=== PATIENT | female | born 1990 | race Caucasian/White ===

== ENCOUNTER 2022-08-03 12:54 | Outpatient (CLI) | payer SELFPAY ==
[2022-08-03 14:48] LABS: Hemoglobin 13.3 g/dL (12.0-15.5); Mean Corpuscular HGB CONC 34.1 g/dL (32.0-36.0); Mean Corpuscular Hemoglobin 32.5 pg (27.0-33.0); Mean Corpuscular Volume 95.4 fl (81.6-98.3); Mean Platelet Volume 11.1 fl (7.4-10.4); Platelet Count 249 10x3/uL (150-450); RBC Distribution Width 12.2 % (11.5-14.5); Red Blood Cell (RBC) Count 4.09 10x6/uL (3.90-5.03); White Blood Cell (WBC) Count 6.2 10x3/uL (3.5-10.5)
[2022-08-03 15:05] LABS: INR-International Normal Ratio 0.9; PTT 25.4 sec (22.0-33.0); Prothrombin Time 9.9 sec (9.5-12.1)
== END 2022-08-03 12:55 | disposition home or self-care (01) ==
LOC: LABBT 12:54
PROVIDERS: ATTEND Neurological Surgery
DX: Z01.812 Encounter for preprocedural laboratory examination (principal); M51.26 Other intervertebral disc displacement, lumbar region; M48.062 Spinal stenosis, lumbar region with neurogenic claudication; M48.07 Spinal stenosis, lumbosacral region; Z20.822 Contact with and (suspected) exposure to COVID-19
CPT/HCPCS: 85027; 85610; 85730; 87811

== ENCOUNTER 2022-08-06 05:42 | Day surgery (SDC) | payer SELFPAY ==
[2022-08-05 11:42] VITALS: BMI 31.7
[2022-08-06] MEDS ORDERED: Midazolam HCl 2 mg/2 ml Vial ONE (06:31)
[2022-08-06] MEDS ORDERED: Scopolamine 1.5 mg/72 hour Patch ONE (06:31)
[2022-08-06] MEDS ORDERED: PROPOFOL 200 MG/20 ML VIAL ONE (06:35)
[2022-08-06] MEDS ORDERED: Ketorolac Tromethamine 30 MG/ML VIAL ONE (06:35)
[2022-08-06] MEDS ORDERED: Ondansetron PF 4 MG/2 ML Vial ONE ×2 (06:35→11:21)
[2022-08-06] MEDS ORDERED: Rocuronium Bromide 10 MG/ML (10ML VIAL) ONE (06:35)
[2022-08-06] MEDS ORDERED: NEOSTIGMINE 3 MG/3 ML SYR 3 MG/3 ML SYRINGE ONE (06:35)
[2022-08-06] MEDS ORDERED: Glycopyrrolate 0.2 MG/ML 5 ML SYRINGE ONE (06:35)
[2022-08-06] MEDS ORDERED: Lidocaine 1% MPF 2 ML VIAL ONE (06:35)
[2022-08-06] MEDS ORDERED: Dexamethasone 20 MG/5 ML VIAL ONE (06:35)
[2022-08-06] MEDS ORDERED: Bupivacaine HCl 0.5%/Epinephrine 1:200,000/PF 30 ml Vial ONE ×2 (06:38→06:41)
[2022-08-06] MEDS ORDERED: Neomycin-Polymyxin 1 ML AMP ONE ×2 (06:38→06:41)
[2022-08-06] MEDS ORDERED: Thrombin 5000 UNITS/5 ML VIAL ONE ×2 (06:38→06:41)
[2022-08-06] MEDS ORDERED: Famotidine/PF 20 mg/2ml Vial ONE (06:40)
[2022-08-06] MEDS ORDERED: fentaNYL Citrate/PF 100 MCG/2 ML SYRINGE ONE (06:40)
[2022-08-06] MEDS ORDERED: Bupivacaine 0.25% HCL 30 ML VIAL ONE (06:41)
[2022-08-06] MEDS ORDERED: Sodium Chloride 0.9% 100 ML ONE (06:52)
[2022-08-06] MEDS ORDERED: CEFAZOLIN 2 GM VIAL ONE (06:52)
[2022-08-06] MEDS ORDERED: HYDROmorphone 2 MG/ML VIAL ONE (10:33)
[2022-08-06] MEDS ORDERED: Fentanyl 100 MCG/2 ML VIAL ONE (11:20)
[2022-08-06] MEDS ORDERED: Ondansetron ODT 4 MG TAB ONE (12:48)
== END 2022-08-06 14:35 | disposition home or self-care (01) ==
LOC: SDC 05:42
PROVIDERS: ATTEND Neurological Surgery
PROC: 01NB0ZZ Release Lumbar Nerve, Open Approach (ICD-10-PCS; principal; 2022-08-06)
DX: M48.062 Spinal stenosis, lumbar region with neurogenic claudication (principal); M51.16 Intervertebral disc disorders with radiculopathy, lumbar region; J45.909 Unspecified asthma, uncomplicated; E66.9 Obesity, unspecified; Z68.31 Body mass index [BMI] 31.0-31.9, adult; Z88.5 Allergy status to narcotic agent
CPT/HCPCS: 76000; J0690; J1100; J1170; J1885; J2250; J2405; J2704; J3010; J3370; J3490; Q0162; S0020; S0028